=== PATIENT | male | born 1940 | race Caucasian/White ===

== ENCOUNTER 2017-07-07 18:14 | Observation (INO) | payer OTHER ==
[~2017-07-07] VITALS: Ht 177.8 cm; Wt 110.5 kg
[2017-07-07 19:14] LABS: HEMATOCRIT 34.5 % (38.0-50.0); MCH 25.3 PG (29.0-34.0); MCHC 31.9 G/DL (30.0-36.0); MCV 79.3 FL (86-99); MEAN PLAT.VOLUME 9.4 uM^3 (9.0-12.4); PLATELET COUNT 234 K/uL (156-360); RBC DIS.WIDTH-CV 16.7 % (11.8-14.6); RBC DIS.WIDTH-SD 48.2 % (39-53); RED BLOOD COUNT 4.35 M/uL (4.00-5.50); WHITE BLOOD COUNT 6.9 K/uL (4.1-10.2)
[2017-07-07 19:29] LABS: CHLORIDE 103 mEq/L (99-109)
[2017-07-07 19:30] LABS: POTASSIUM 4.7 mEq/L (3.7-5.4); SODIUM 137 mEq/L (136-147)
[2017-07-07 19:31] LABS: GLUCOSE 106 mg/dL (70-99)
[2017-07-07 19:33] LABS: ANION GAP 11 MEQ/L (2-14)
[2017-07-07 19:35] LABS: GFR ESTIMATE (CALCULATED) > 59 mL/min/
[2017-07-07 19:36] LABS: UREA NITROGEN (BUN) 18 mg/dL (9-23)
[2017-07-07 19:41] LABS: TROP-I INTERPRETATION NEGATIVE; TROPONIN-I < 0.01 ng/mL (0.0-0.30)
[2017-07-07] MEDS ORDERED: METFORMIN HCL500 MG PO (21:39)
[2017-07-07] MEDS ORDERED: BENICAR40 MG PO (21:39)
[2017-07-07] MEDS ORDERED: ELIQUIS5 MG PO (21:39)
[2017-07-07] MEDS ORDERED: METOPROLOL TAR100 MG PO (21:40)
[2017-07-07] MEDS ORDERED: GLIPIZIDE5 MG PO (21:40)
[2017-07-07 21:52] VITALS: BP 192/89
[2017-07-07 23:41] VITALS: BP 136/63
[2017-07-08 03:41] VITALS: BP 138/64
[2017-07-08 05:37] LABS: BASOPHIL COUNT 0.1 K/uL (0-0.1); EOSINOPHIL (%) 1.6 % (0-5); EOSINOPHIL COUNT 0.1 K/uL (0-0.3); IMMATURE GRANULOCYTE (%) 0.5 % (0.0-0.7); INSTRUMENT ABS NEUTROPHIL CT 3.5 K/uL; LYMPHOCYTE COUNT 1.7 K/uL (1.0-2.8); MCH 25.7 PG (29.0-34.0); MCHC 32.8 G/DL (30.0-36.0); MCV 78.4 FL (86-99); MEAN PLAT.VOLUME 9.6 uM^3 (9.0-12.4); MONOCYTE (%) 12.2 % (3-12); MONOCYTE COUNT 0.8 K/uL (0-0.8); NEUTROPHIL (%) 56.4 % (45-76); NEUTROPHIL COUNT 3.5 K/uL (1.8-6.4); PLATELET COUNT 233 K/uL (156-360); RBC DIS.WIDTH-CV 16.6 % (11.8-14.6); RED BLOOD COUNT 4.08 M/uL (4.00-5.50); WHITE BLOOD COUNT 6.1 K/uL (4.1-10.2)
[2017-07-08 06:02] LABS: ANION GAP 10 MEQ/L (2-14); CHLORIDE 97 MEQ/L (99-109); GFR ESTIMATE (CALCULATED) > 59 mL/min/; GLUCOSE 140 mg/dL (70-99); POTASSIUM 3.9 MEQ/L (3.7-5.4); SAMPLE HEMOLYSIS CHECK 0; SAMPLE ICTERIC CHECK 0; SAMPLE LIPEMIA CHECK 0; SODIUM 134 MEQ/L (136-147); UREA NITROGEN (BUN) 16 mg/dL (9-23)
[2017-07-08 08:27] LABS: POINT-OF-CARE METER ID UU13113831
[2017-07-08 09:50] VITALS: BP 159/78
[2017-07-08 11:33] VITALS: BP 140/87
[2017-07-08 12:28] LABS: POINT-OF-CARE METER ID UU14162513
[2017-07-08 15:39] VITALS: BP 140/68
[2017-07-08] MEDS ORDERED: ASPIR-LOW81 MG PO (16:14)
[2017-07-08] MEDS ORDERED: LOSARTAN POTAS100 MG PO (16:14)
[2017-07-08] MEDS ORDERED: FURO100I PO (16:14)
[2017-07-08] MEDS ORDERED: CEFTIN500 MG PO (16:14)
[2017-07-08] MEDS ORDERED: SIMVASTATIN20 MG PO (16:14)
[2017-07-08 16:17] LABS: Estimated Average Glucose 183 mg/dL (70-123)
[2017-07-08 16:59] LABS: POINT-OF-CARE METER ID UU13113700
[2017-07-08 19:00] VITALS: BP 140/76
== END 2017-07-08 21:26 | disposition home or self-care (01) ==
LOC: EME 18:14 → EDOF 19:50 → ENRESERV 19:53 → 5WEST 21:41
PROVIDERS: Family Medicine
DX: I11.0 Hypertensive heart disease with heart failure (principal); I50.9 Heart failure, unspecified; E78.5 Hyperlipidemia, unspecified; K21.9 Gastro-esophageal reflux disease without esophagitis; M19.90 Unspecified osteoarthritis, unspecified site; I48.2 Chronic atrial fibrillation; R14.0 Abdominal distension (gaseous); Z79.01 Long term (current) use of anticoagulants; E11.9 Type 2 diabetes mellitus without complications; Z79.84 Long term (current) use of oral hypoglycemic drugs; E66.9 Obesity, unspecified; Z68.34 Body mass index [BMI] 34.0-34.9, adult; Z82.49 Family history of ischemic heart disease and other diseases of the circulatory system; Z82.3 Family history of stroke
CPT/HCPCS: 71020; 80048; 82948; 83036; 83880; 84484; 85025; 85027; 93005; 99281; 99285; G0378; J0360; J0696; J1940; J7050